=== PATIENT | female | born 1960 | race Two or more races ===

== ENCOUNTER 2018-07-14 10:36 | Outpatient (CLI) | payer OTHER ==
[~2018-07-14 10:36] MED LIST: INTEGRA F CAPS1 EACH PO
== END 2018-07-14 10:40 | disposition home or self-care (01) ==
LOC: SONOGRAMA 10:36
DX: E04.1 Nontoxic single thyroid nodule (principal)

== ENCOUNTER 2019-07-08 09:40 | Outpatient (CLI) | payer OTHER | END 2019-07-08 10:10 | disposition home or self-care (01) | LOC: NUCLEAR 09:40 | DX: M25.561 Pain in right knee (principal); Z96.651 Presence of right artificial knee joint | CPT/HCPCS: 78315; A9503 ==

== ENCOUNTER 2019-12-16 12:36 | Outpatient (CLI) | payer OTHER | END 2019-12-16 14:22 | disposition home or self-care (01) | LOC: SONOGRAMA 12:36 | PROVIDERS: ATTEND Pathology Anatomic Pathology | DX: E04.2 Nontoxic multinodular goiter (principal) ==

== ENCOUNTER 2020-11-02 14:13 | Outpatient (CLI) | payer OTHER | END 2020-11-02 14:14 | disposition home or self-care (01) | LOC: NUCLEAR 14:13 | PROVIDERS: ATTEND Orthopaedic Surgery | DX: M81.0 Age-related osteoporosis without current pathological fracture (principal) ==

== ENCOUNTER 2024-03-04 14:55 | Outpatient (CLI) | payer OTHER | END 2024-03-04 15:14 | disposition home or self-care (01) | LOC: RAD 14:55 | PROVIDERS: ATTEND Orthopaedic Surgery | DX: M25.552 Pain in left hip (principal); M17.12 Unilateral primary osteoarthritis, left knee ==

== ENCOUNTER 2024-04-30 09:51 | Outpatient (CLI) | payer OTHER ==
[2024-04-30 11:09] LABS: HEMATOCRIT 30.2 % (36.0-45.00); MEAN CELL VOLUME 76.9 fL (80.00-100.00); MEAN CORPUSCULAR HGB CONC 32.1 g/dl (32.0-36.0); PLATELET COUNT 339 K/uL (150-450); RED BLOOD COUNT 3.92 M/uL (4.00-6.00); RED CELL DISTRIBUTION WIDTH 16.6 % (11.5-14.5)
[2024-04-30 11:10] LABS: PH,URINE 6.5 (5.0-8.0); URINE APPEARANCE Cloudy; URINE BILIRRUBIN Negative (NEGATIVE); URINE COLOR Yellow; URINE GLUCOSE Negative (NEGATIVE); URINE KETONE Negative (NEGATIVE); URINE LEUKOCYTE Trace; URINE NITRATE Negative; URINE PROTEIN Trace (NEGATIVE); URINE UROBILINOGEN 0.2 E.U./dl
[2024-04-30 11:10] LABS: HEMOGLOBIN 9.7 g/dL (12.0-15.00); MEAN CORPUSCULAR HEMOGLOBIN 24.7 pg (27.00-32.0)
[2024-04-30 11:11] LABS: URINE BACTERIA 89.4 uL (0.0-1933); URINE EPITHELIAL CELLS 3.4 uL (0.0-38.8); URINE RBC 132.5 uL (0.0-20.8); URINE WBC 4.6 uL (0.0-23.2)
[2024-04-30 11:22] LABS: URINE BLOOD TRACE
[2024-04-30 11:23] LABS: INR 0.98; PARTIAL THROMBOPLASTIN TIME 24.9 SECONDS (22.0-34.0); PROTHROMBIN TIME 10.7 SECONDS (9.0-11.5)
[2024-04-30 11:23] LABS: URINE CRYSTALS MANY /HPF
[2024-04-30 11:30] LABS: ALBUMIN 3.9 gm/dL (3.4-5.0); BILIRUBIN TOTAL 0.36 mg/dL (0.3-1.2); CALCIUM 9.3 mg/dL (8.5-10.1); CREATININE SERUM 0.69 mg/dL (0.55-1.02); GFR 85.93; GLOBULINA 3.3 G/DL (2.4-3.5); POTASSIUM 3.54 mEq/L (3.5-5.1); TOTAL PROTEIN 7.2 gm/dL (6.4-8.2)
[2024-04-30 12:01] LABS: COL EPI 147 SECONDS (82-175)
== END 2024-04-30 09:53 | disposition home or self-care (01) ==
LOC: RAD 09:51
PROVIDERS: ATTEND Orthopaedic Surgery
DX: D64.9 Anemia, unspecified (principal); E88.89 Other specified metabolic disorders; D68.8 Other specified coagulation defects; N39.0 Urinary tract infection, site not specified; E11.9 Type 2 diabetes mellitus without complications; I10 Essential (primary) hypertension; Z76.89 Persons encountering health services in other specified circumstances

== ENCOUNTER 2024-04-30 10:56 | Outpatient (CLI) | payer OTHER | END 2024-04-30 11:02 | disposition home or self-care (01) | LOC: RAD 10:56 | PROVIDERS: ATTEND Orthopaedic Surgery | DX: Z76.89 Persons encountering health services in other specified circumstances (principal); M79.652 Pain in left thigh; M79.605 Pain in left leg ==

== ENCOUNTER 2025-05-02 13:58 | Outpatient (CLI) | payer OTHER | END 2025-05-02 14:00 | disposition home or self-care (01) | LOC: RAD 13:58 | PROVIDERS: ATTEND Orthopaedic Surgery | DX: M17.12 Unilateral primary osteoarthritis, left knee (principal); Z96.651 Presence of right artificial knee joint ==